=== PATIENT | male | born 1995 | race Two or more races ===

== ENCOUNTER 2017-03-24 14:43 | Emergency (ER) | payer SELFPAY ==
[~2017-03-24] VITALS: Ht 165.1 cm; Wt 90.7 kg
[2017-03-24 15:03] VITALS: BP 146/76
== END 2017-03-24 18:42 | disposition left against medical advice (07) ==
LOC: ER 18:34
DX: R07.0 Pain in throat (principal); Z53.21 Procedure and treatment not carried out due to patient leaving prior to being seen by health care provider